=== PATIENT | male | born 2000 | race Two or more races ===

== ENCOUNTER 2022-02-05 00:31 | Emergency (ER) | payer SELFPAY ==
[~2022-02-05] VITALS: Ht 167.6 cm; Wt 72.6 kg
--- NOTE | 2022-02-05 00:43 | NUR ---
TRAY [address] ETOH FOUND LYING ON FLOOR. INTOXICATED. PT TOLERATING R/A WELL WITH NO RESP DISTRESS. AMBULATORY WITH STEADY GAIT. SAFETY MEASURES IN PLACE.
--- NOTE | 2022-02-05 00:56 | NUR ---
[employer] AT PT'S BEDSIDE
--- NOTE | 2022-02-05 00:59 | NUR ---
Patient does not wish to proceed with medical care recommended by Dr. Kearney. Patient given information related to possible complications, up to and including , which could occur as a result of leaving the hospital at this time. Patient verbalizes understanding of risks involved due to leaving against medical advice. Patient has signed AMA form. PT ambulatory with a steady gait
[2022-02-05 01:00] VITALS: BP 129/70
== END 2022-02-05 01:00 | disposition home or self-care (01) ==
LOC: ER 00:41
DX: F10.129 Alcohol abuse with intoxication, unspecified (principal); Y90.9 Presence of alcohol in blood, level not specified